=== PATIENT | male | born 1990 | race Caucasian/White ===

== ENCOUNTER 2019-05-24 11:32 | Emergency (ER) | payer MEDICAID ==
--- NOTE | 2019-05-24 12:38 | EDM.PDOC ---
ED HPI GENERAL MEDICAL PROBLEM - General Stated Complaint: SOB,RIB PAIN Time Seen by Provider: 05/24/19 12:15 Source of Information: Reports: Patient - History of Present Illness INITIAL COMMENTS - FREE TEXT/NARRATIVE: Patient is a 29 YO WM who was diagnosed with pleurisy by [facility] in [place] and was prescribed naproxen but didn't take the medicine because he doesn't have $ [address]. Today he is back c/o of left pleuritic pain/610 and worse with breathing and movement. there is no associated fever /chills. He used to smke 2 PPD but quit 4 days ago. left rib Pain Score (Numeric/FACES): 8 - Related Data Allergies Allergy/AdvReac Type Severity Reaction Status Date / Time amoxicillin Allergy Swelling Verified 05/24/19 11:47 Home Meds: Home Meds predniSONE 20 mg PO DAILY #7 tab 05/24/19 [Rx] ED ROS GENERAL - Review of Systems Review Of Systems: See Below Constitutional: Reports: No Symptoms HEENT: Reports: No Symptoms Respiratory: Reports: Shortness of Breath, Pleuritic Chest Pain Cardiovascular: Reports: No Symptoms Endocrine: Reports: No Symptoms GI/Abdominal: Reports: No Symptoms : Reports: No Symptoms Musculoskeletal: Reports: No Symptoms Skin: Reports: No Symptoms Neurological: Reports: No Symptoms ED EXAM, GENERAL - Physical Exam Exam: See Below Exam Limited By: No Limitations General Appearance: Alert, No Apparent Distress Nose: Normal Inspection, Normal Mucosa, No Blood Throat/Mouth: Normal Inspection, Normal Lips Head: Atraumatic, Normocephalic Neck: Normal Inspection, Supple, Non-Tender, Full Range of Motion Respiratory/Chest: No Respiratory Distress, Lungs Clear, Normal Breath Sounds, Other (let chest wall tenderness) Cardiovascular: Normal Peripheral Pulses, Regular Rate, Rhythm, No Edema, No Gallop, No JVD GI/Abdominal: Normal Bowel Sounds, Soft, Non-Tender, No Organomegaly (Male) Exam: No Hernia, Normal Inspection Back Exam: Normal Inspection, Full Range of Motion Extremities: Normal Inspection, Normal Range of Motion Neurological: Alert, Oriented, CN II-XII Intact, Normal Cognition, Normal Gait Course - Vital Signs Text/Narrative:: reassurance start on prednisone 20 mg QD x 7 days aleve 2 tablets with 2 extra strength Tylenol BID PRN Last Recorded V/S: Last Vital Signs Temp 36.7 C 05/24/19 11:40 Pulse 72 05/24/19 11:40 Resp 24 H 05/24/19 11:40 BP 108/72 05/24/19 11:40 Pulse Ox 100 05/24/19 11:40 Departure - Departure Time of Disposition: 12:35 Disposition: Home, Self-Care 01 Condition: Good Clinical Impression: Pleurisy - Discharge Information Prescriptions: predniSONE 20 mg PO DAILY #7 tab Instructions: Pleurisy, [id number] Referrals: PCP,Not In Area [Primary Care Provider] - Additional Instructions: increase oral fluids prednisone 20 mg daily for 7 days take 2 aleve with 2 extra strength tylenol/acetaminophen every 12 hours as needed for pain follow up if symptoms persist
== END 2019-05-24 12:42 | disposition home or self-care (01) ==
LOC: FB.ED 11:32
DX: R09.1 Pleurisy (principal); Z87.891 Personal history of nicotine dependence
CPT/HCPCS: 99283

== ENCOUNTER 2019-06-01 17:54 | Emergency (ER) | payer MEDICAID ==
[2019-06-01] MEDS ORDERED: traMADol 50 MG Tab PO ONE (17:55)
--- NOTE | 2019-06-01 18:13 | EDM.PDOC ---
ED HPI GENERAL MEDICAL PROBLEM - General Stated Complaint: RIB PAIN Time Seen by Provider: 06/01/19 18:07 Source of Information: Reports: Patient History Limitations: Reports: No Limitations - History of Present Illness INITIAL COMMENTS - FREE TEXT/NARRATIVE: 29-year-old male who reports onset of left anterolateral sharp chest pain about 3-4 weeks ago. About half weeks ago he went to a hospital in [place] and reports that he had a chest x-ray performed which showed nothing and he was told that he had pleurisy. He was placed on an anti-inflammatory medication and he reports that it didn't really seem to do much. On 05/24/2019, he was seen in this emergency department and no further testing was done but he was placed on prednisone at that time. He reports that initially it seemed to help for a few days but his symptoms have come back and it seems to have worsened. He reports a sharp pain in his left anterolateral chest that is worse with palpation, movement and with deep breaths. He said pain is a 9/10. He's had no nausea or vomiting. He's had no fevers or chills. He's had a mild cough but it has been nonproductive. He does feel somewhat short of breath with this. He denies any trauma to the area. He has no leg pain or swelling. Does give a history of an injury to his right foot in the past that was apparently associate with a fracture that was not diagnosed initially and later when he was seen he was found to have DVT in his right lower extremity and was placed on Lovenox then Coumadin for treatment of this. He is no longer on chronic anticoagulation. There are no other associated signs or symptoms. There are no other modifying factors. 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 No longer on anticoagulation.) - Past Surgical History Other Surgical History Comment: No previous surgeries. 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) ED ROS GENERAL - Review of Systems Review Of Systems: See Below Constitutional: Denies: Fever, Chills HEENT: Reports: No Symptoms Respiratory: Reports: Shortness of Breath, Cough (Mild) Cardiovascular: Reports: Chest Pain, Dyspnea on Exertion GI/Abdominal: Reports: No Symptoms : Reports: No Symptoms Musculoskeletal: Reports: Other (No leg swelling or pain) Skin: Reports: No Symptoms Neurological: Reports: No Symptoms Hematologic/Lymphatic: Reports: No Symptoms Immunologic: Reports: No Symptoms ED EXAM, GENERAL - Physical Exam Exam: See Below Exam Limited By: No Limitations General Appearance: Alert, WD/WN, Mild Distress Eye Exam: Bilateral Eye: EOMI, Normal Inspection, PERRL Ears: Normal External Exam Ear Exam: Bilateral Ear: Auricle Normal Nose: Normal Inspection, Normal Mucosa, No Blood Throat/Mouth: Normal Inspection, Normal Oropharynx, Normal Voice, No Airway Compromise Head: Atraumatic, Normocephalic Neck: Normal Inspection, Supple, Non-Tender, Full Range of Motion Respiratory/Chest: No Respiratory Distress, Lungs Clear, Normal Breath Sounds, No Accessory Muscle Use, Other (Tender over the left anterolateral chest) Cardiovascular: Normal Peripheral Pulses, Regular Rate, Rhythm, No Edema, No Murmur Peripheral Pulses: 2+: Radial (L), Radial (R), Dorsalis Pedis (L), Dorsalis Pedis (R) GI/Abdominal: Normal Bowel Sounds, Soft, Non-Tender, No Organomegaly, No Mass Back Exam: Normal Inspection Extremities: Normal Inspection, Normal Range of Motion, Non-Tender, No Pedal Edema, Normal Capillary Refill Skin Exam: Warm, Dry, Intact, Normal Color, No Rash EKG INTERPRETATION EKG Date: 06/01/19 Time: 18:43 Rhythm: NSR Rate (Beats/Min): 67 [place]: RAD-Right [place] Deviation P-Wave: Present QRS: Other (Left posterior fascicular block) ST-T: Other (Earlier polarization pattern) QT: Normal Comparison: NA - No Prior EKG Course - Vital Signs Last Recorded V/S: Last Vital Signs Temp 36.6 C 06/01/19 17:54 Pulse 89 06/01/19 17:54 Resp 16 06/01/19 17:54 BP 108/54 L 06/01/19 17:54 Pulse Ox 99 06/01/19 17:54 - Orders/Labs/Meds Orders: Active Orders 24 hr Category Date Time Status EKG Documentation Completion [RC] ASDIRECTED Care 06/01/19 18:22 Active Chest 2V [CR] Stat Exams 06/01/19 18:21 Taken EKG 12 Lead [EK] Routine Ther 06/01/19 18:21 Ordered Labs: Laboratory Tests 06/01/19 06/01/19 06/01/19 Range/Units 18:35 18:35 18:35 D-Dimer, Quantitative 0.33 (0.0-0.59) mg/LFEU Sodium 143 (135-145) mmol/L Potassium 4.0 (3.5-5.3) mmol/L Chloride 105 (100-110) mmol/L Carbon Dioxide 33 H (21-32) mmol/L BUN 11 (7-18) mg/dL Creatinine 0.9 (0.70-1.30) mg/dL Est Cr Clr Drug Dosing 134.12 mL/min Estimated GFR (MDRD) > 60 (>60) BUN/Creatinine Ratio 12.2 (9-20) Glucose 93 (80-116) mg/dL Calcium 9.0 (8.6-10.2) mg/dL Troponin I < 0.017 L (<0.017-0.056) ng/mL - Radiology Interpretation Free Text/Narrative:: Chest x-ray PA and lateral showed no acute disease. - Re-Assessments/Exams Free Text/Narrative Re-Assessment/Exam: 06/01/19 19:22: The patient's blood tests were all reassuringly normal. His EKG was normal. His chest x-ray was normal. There is no evidence of blood clot at this time. He has no evidence of pneumonia or any other significant infection or problem at this time. I am unsure of the exact cause of his pain but it is likely due to costochondritis. I am going to have the patient continues take Aleve twice daily at least for the next 5 days. I will give him a prescription of tramadol for more severe pain. He may continue to take Tylenol for the pain. I will refer him to Hallie Dunn NP to be seen next week for follow-up and for any further evaluation. Departure - Departure Time of Disposition: 19:30 Disposition: Home, Self-Care 01 Condition: Good (Stable) Clinical Impression: Pleuritic chest pain, Chest wall pain, Costochondritis - Discharge Information Prescriptions: traMADol [Ultram] 50 mg PO Q6H PRN #8 tab PRN Reason: Moderate to severe pain Instructions: Costochondritis, [id number], Chest Wall Pain, [id number] Referrals: Hallie Dunn NP [Nurse Practitioner] - Additional Instructions: Your chest x-ray, EKG and blood tests were all reassuringly normal. Specifically , there does not appear to be anything wrong with your heart and you do not appear to have a blood clot. As we discussed, I am unsure of the cause of your pain but it appears to be either in the muscles are the cartilage of your chest wall. This is called costochondritis. It sometimes takes quite a bit of time to resolve. He should continue to take Aleve twice daily at least for the next 5 days. You may take Tylenol 1000 mg by mouth every 6 hours as needed for pain. I have given you a prescription of tramadol 50 mg for more severe pain. I have also referred you to Hallie Dunn NP. Her clinic should call you with an appointment by middle of next week. If you do not hear from them, you should call their office for follow-up. Back to the emergency department for coughing of blood, worse breathing or any other concerning sign or symptom. - My Orders Last 24 Hours: My Active Orders 06/01/19 18:21 Chest 2V [CR] Stat EKG 12 Lead [EK] Routine 06/01/19 18:22 EKG Documentation Completion [RC] ASDIRECTED - Assessment/Plan Last 24 Hours: My Active Orders 06/01/19 18:21 Chest 2V [CR] Stat EKG 12 Lead [EK] Routine 06/01/19 18:22 EKG Documentation Completion [RC] ASDIRECTED
--- NOTE | 2019-06-03 13:27 | CR ---
INDICATION: Left-sided pleuritic chest pain. CHEST: Two PA views and a lateral view of the chest were obtained 06/01/19 - no comparisons. The lateral view was slightly limited in that the posterior sulci were not fully visualized. However, a definite active infiltrate or effusion was not identified. The heart, mediastinum, and bony thorax were unremarkable. No evidence of pneumothorax was identified. IMPRESSION: No active disease. MTDD
== END 2019-06-01 19:33 | disposition home or self-care (01) ==
LOC: FB.ED 17:54
DX: M94.0 Chondrocostal junction syndrome [Tietze] (principal); R07.81 Pleurodynia; Z79.899 Other long term (current) drug therapy; Z87.891 Personal history of nicotine dependence; Z88.1 Allergy status to other antibiotic agents; Z86.718 Personal history of other venous thrombosis and embolism
CPT/HCPCS: 36415; 71046; 80048; 84484; 85379; 93005; 99284-25; A9270-GY